=== PATIENT | male | born 1980 | race Caucasian/White ===

== ENCOUNTER 2018-05-19 16:06 | Emergency (ER) | payer BC ==
[2018-05-19] MEDS ORDERED: HYDROMORPHONE HCL 2 MG/ML VIAL IVP ONE ×2 (16:18→16:50)
[2018-05-19] MEDS ORDERED: KETOROLAC 30 MG/ML VIAL IVP ONE (16:21)
--- NOTE | 2018-05-19 16:23 | Emergency Department Record ---
History of Present Illness - General Chief Complaint: Abdominal Pain Stated Complaint: ABDOMINAL PAIN/VOMITING Time Seen by Provider: 05/19/18 16:10 Source: Patient, Family Mode of Arrival: EMS - History of Present Illness Initial Comments: 38 yo male presents with abdominal pain since 1pm. He reports he had some diarrhea earlier. No blood in the diarrhea. The pain he states is mostly below the umbilicus. He had associated vomiting. No blood in the diarrhea. He denies any history of abdominal surgery. Initially he is a limited historian due to pain. He is unable to fully verbalize answers due to the pain. No trauma. He denies fevers. MD Complaint: Abdominal pain Onset/Timin -: Hour(s) Location: Suprapubic Radiation: None Migration to: Suprapubic Severity: Severe Severity scale (1-10): 10 Quality: Sharp Consistency: Constant Improves With: Nothing Worsens With: Nothing Associated Symptoms: Nausea, Vomiting - Related Data Home Medications Medication Instructions Recorded Confirmed Last Taken Bupropion HCl [Bupropion HCl Sr] 150 mg PO DAILY 05/19/18 05/19/18 Unknown Previous Rx's Medication Instructions Recorded Tramadol HCl 50 mg PO Q6H #30 tab 08/28/15 Allergies Allergy/AdvReac Type Severity Reaction Status Date / Time No Known Drug Allergies Allergy Unverified 09/24/17 10:49 Travel Screening - Travel/Exposure Within Last 30 Days Have you traveled within the last 30 days?: No Review of Systems Constitutional: Denies: Chills, Fever, Weakness Eyes: Denies: Eye discharge ENT: Denies: Congestion, Throat pain Respiratory: Denies: Cough Cardiovascular: Denies: Chest pain, Palpitations, Syncope Endocrine: Denies: Fatigue Gastrointestinal: Reports: Abdominal pain, Diarrhea, Nausea, Vomiting. Denies: Constipation, Hematemesis, Hematochezia, Melena Genitourinary: Denies: Dysuria, Frequency, Hematuria Musculoskeletal: Denies: Arthralgia, Back pain, Myalgia, Neck pain Skin: Denies: Bruising, Change in color, Rash Neurological: Denies: Headache, Numbness, Weakness Psychiatric: Denies: Anxiety Hematological/Lymphatic: Denies: Easy bleeding, Easy bruising Past Medical History - SOCIAL HISTORY Smoking Status: Never smoker - RESPIRATORY Hx Respiratory Disorders: No - CARDIOVASCULAR Hx Cardio Disorders: No - NEURO Hx Neuro Disorders: No - GI Hx GI Disorders: No - Hx Genitourinary Disorders: No - ENDOCRINE Hx Diabetes: No Hx Thyroid Disease: No - MUSCULOSKELETAL Hx Musculoskeletal Disorders: Yes Hx Back Injury: Yes - PSYCH Hx Psych Problems: No - HEMATOLOGY/ONCOLOGY Hx Hematology/Oncology Disorders: No Family Medical History Any Significant Family History?: Yes Hx Diabetes: Grandparents Hx Heart Disease: Grandparents Physical Exam - General General Appearance: Alert, Oriented x3, Moderate distress, Anxious, Other ( Moaning rolling on the gurney, difficult to speak due to pain) Limitations: No limitations - Head Head exam: Atraumatic, Normal inspection - Eye Eye exam: Normal appearance. negative: Conjunctival injection - ENT ENT exam: Normal exam Ear exam: Normal external inspection Nasal Exam: Normal inspection Mouth exam: Normal external inspection - Neck Neck exam: Normal inspection - Respiratory Respiratory exam: Normal lung sounds bilaterally. negative: Respiratory distress - Cardiovascular Cardiovascular Exam: Regular rate, Normal rhythm, Normal heart sounds - GI/Abdominal GI/Abdominal exam: Soft, Guarding, Tenderness (tender across the lower abdomen) . negative: Distended, Rigid - Rectal Rectal exam: Deferred - exam: Deferred - Extremities Extremities exam: Normal inspection, Full ROM, Normal capillary refill. negative: Tenderness - Back Back exam: Denies: CVA tenderness (R), CVA tenderness (L) - Neurological Neurological exam: Alert, Oriented X3 - Psychiatric Psychiatric exam: Agitated, Anxious - Skin Skin exam: Dry, Intact, Normal color, Warm Course Vital Signs 05/19/18 16:10 Pulse Rate 89 Respiratory 24 Rate Blood Pressure 108/60 Pulse Ox 100 - Reevaluation(s) Reevaluation #1: CBC was reviewed. WBC is 15.3 HCO3 is 20 AG is 22 05/19/18 16:50 05/19/18 17:20 The pain level has greatly decreased from a 10/10 to a 4 and is "manageable" The nausea is gone UA was provided. 05/19/18 17:39 UA is negative 05/19/18 19:12 The patient is nausea free and pain free at this point. The CT scan is pending. No vomiting or diarrhea. 05/19/18 19:[address] of the abdomen was negative for acute abnormality. 05/19/18 19:58 The case was signed out to Dr Joseph for further evaluation. The patient is symptom free now. Given his sever pain at presentation recommend PO challenge. If asymptomatic then DC to recheck in the ED tomorrow or with his PCP to also consider US to evaluate the gall bladder although somewhat atypical history for that. Recommended return to ED to recheck the WBC count and assess if any additional abdominal pain. Medical Decision Making - Lab Data Result diagrams: 05/19/18 16:10 05/19/18 16:10 Disposition Disposition: Discharge Clinical Impression: Abdominal pain Qualifiers: Abdominal location: unspecified location Qualified Code(s): R10.9 - Unspecified abdominal pain Disposition: Home, Self-Care Condition: (1) Good Instructions: Abdominal Pain (ED) Additional Instructions: Return of be seen tomorrow to recheck your abdomen and recheck your blood count Return sooner if the pain returns Avoid fatty foods or heavy meals for the next few days Forms: Patient Portal Access Quality - Blood Pressure Screening Does Patient Have Any of the Following: No Blood Pressure Classification: Normal BP Reading Systolic Measurement: 108 Diastolic Measurement: 60 Screening for High Blood Pressure: < Normal BP, F/U Not Required > [G8783]
[2018-05-19 16:25] LABS: BASO % 0.2 % (0-6); EOS % 0.7 % (0-6); GRAN % 79.3 % (47-80); HEMATOCRIT 45.5 % (42.0-52.0); HEMOGLOBIN 15.6 gm/dl (14.0-18.0); LYMPH % 15.1 % (16-45); MEAN CORPUSCULAR HEMOGLOBIN 29.5 pg (27-33); MEAN CORPUSCULAR HGB CONC 34.3 g/dl (32-36); MEAN PLATELET VOLUME 10.9 fl (7.4-10.4); MONO % 4.7 % (0-9); PLATELET COUNT 335 K/uL (130-400); RED BLOOD COUNT 5.29 M/uL (4.40-5.70); RED CELL DISTRIBUTION WIDTH 12.5 % (11.5-14.5); WHITE BLOOD COUNT W/O DIFF 15.3 K/uL (4.2-12.2)
[2018-05-19 16:37] LABS: BLOOD UREA NITROGEN 15 mg/dL (6-20); CREATININE 1.1 mg/dL (0.7-1.2); EST GLOMERULAR FILTRATION RATE > 60 mL/min
[2018-05-19 16:38] LABS: TOTAL PROTEIN 7.6 g/dL (6.6-8.7)
[2018-05-19 16:40] LABS: GLUCOSE,RANDOM 161 mg/dL (74-109)
[2018-05-19 16:42] LABS: ALT/SGPT 15 U/L (<41)
[2018-05-19 16:43] LABS: ALB/GLOB RATIO 1.4 (1.1-1.8); ALBUMIN 4.4 g/dL (4.0-5.0); ALKALINE PHOSPHATASE 109 U/L (40-129); AST/SGOT 28 U/L (10.0-50.0); LIPASE 89 U/L (13-60)
[2018-05-19 17:06] LABS: PARTIAL THROMBOPLASTIN TIME 24.1 SECONDS (24.5-39.1); PROTHROMBIN TIME (PATIENT) 10.1 SECONDS (9.5-12.1)
[2018-05-19 17:13] LABS: URINE APPEARANCE CLEAR; URINE BILIRUBIN NEGATIVE (NEGATIVE); URINE BLOOD NEGATIVE (NEGATIVE); URINE COLOR YELLOW; URINE GLUCOSE (UA) NEGATIVE (NEGATIVE); URINE LEUKOCYTE ESTERASE NEGATIVE (NEGATIVE); URINE NITRITE NEGATIVE (NEGATIVE); URINE PROTEIN NEGATIVE (NEGATIVE); URINE UROBILINOGEN 0.2 E.U./dL (0.20 - 1.00)
[2018-05-19 17:16] LABS: URINE KETONE 80 mg/dL (NEGATIVE)
== END 2018-05-19 21:05 | disposition home or self-care (01) ==
LOC: ER 16:06
DX: R10.33 Periumbilical pain (principal); R11.2 Nausea with vomiting, unspecified; R19.7 Diarrhea, unspecified
CPT/HCPCS: 99284 ×2; 96374; 96375; 83605; 83690; 85025; 85730; 85610; 80053; 81003; 74177; Q9967; J1885; J1170

== ENCOUNTER 2018-05-20 16:28 | Emergency (ER) | payer BC ==
--- NOTE | 2018-05-20 16:49 | Emergency Department Record ---
History of Present Illness - General Chief Complaint: Recheck - Other Stated Complaint: GALL BLADDER/ US Time Seen by Provider: 05/20/18 16:45 Source: Patient Mode of arrival: Ambulatory Limitations: No limitations - History of Present Illness Initial Comments: The patient is here for a recheck of his abdominal pain that he had yesterday. The pain was quite severe yesterday and the patient had a neg workup including an abdominal CT. Today he states he has had some mild lower abdominal cramping but no severe pain, fever, nausea, vomiting, or diarrhea. The patient has been eating and drinking normally with no problems. MD Complaint: Wound re-check Onset/Timin -: Days(s) Initial Visit For: Other Returns Today for: Other Symptoms Since Prior Visit: Improved Associated Symptoms: Abdominal pain - Related Data Previous Rx's Medication Instructions Recorded Tramadol HCl 50 mg PO Q6H #30 tab 08/28/15 Allergies Allergy/AdvReac Type Severity Reaction Status Date / Time No Known Drug Allergies Allergy Verified 05/20/18 16:32 Travel Screening - Travel/Exposure Within Last 30 Days Have you traveled within the last 30 days?: No - Travel/Exposure Within Last Year Have you traveled outside the [place] in the last year?: No - Additonal Travel Details Have you been exposed to anyone with a communicable illness?: No - Travel Symptoms Symptom Screening: None Review of Systems Constitutional: Denies: Chills, Fever Eyes: Denies: Eye discharge ENT: Denies: Congestion Respiratory: Denies: Cough, Dyspnea Past Medical History - SOCIAL HISTORY Smoking Status: Never smoker Alcohol Use: None Drug Use: None - RESPIRATORY Hx Respiratory Disorders: No - CARDIOVASCULAR Hx Cardio Disorders: No - NEURO Hx Neuro Disorders: No - GI Hx GI Disorders: No - Hx Genitourinary Disorders: No - ENDOCRINE Hx Diabetes: No Hx Thyroid Disease: No - MUSCULOSKELETAL Hx Musculoskeletal Disorders: Yes Hx Back Injury: Yes - PSYCH Hx Psych Problems: No - HEMATOLOGY/ONCOLOGY Hx Hematology/Oncology Disorders: No Family Medical History Any Significant Family History?: Yes Hx Diabetes: Grandparents Hx Heart Disease: Grandparents Physical Exam - General General Appearance: Alert, Oriented x3, Cooperative, No acute distress - Head Head exam: Atraumatic, Normocephalic, Normal inspection - Eye Eye exam: Normal appearance, PERRL, EOMI - Neck Neck exam: Normal inspection, Full ROM. negative: Tenderness - Respiratory Respiratory exam: Normal lung sounds bilaterally. negative: Respiratory distress - Cardiovascular Cardiovascular Exam: Regular rate, Normal rhythm, Normal heart sounds - GI/Abdominal GI/Abdominal exam: Soft, Normal bowel sounds. negative: Distended, Guarding, Rebound, Rigid, Tenderness - Extremities Extremities exam: Normal inspection, Full ROM, Normal capillary refill. negative: Tenderness - Neurological Neurological exam: Alert, Normal gait. negative: Abnormal gait, Motor sensory deficit - Psychiatric Psychiatric exam: Normal mood Course Vital Signs 05/20/18 16:35 Temperature 98.7 F Pulse Rate 88 Respiratory 20 Rate Blood Pressure 114/71 Pulse Ox 96 - Reevaluation(s) Reevaluation #1: The patient is doing very well at this time. He denies any pain or discomfort. I did discuss the neg workup with him and will refer him to GI due to the severe pain he was experiencing. 05/20/18 19:07 Medical Decision Making - Data Complexity MDM Data: Labs Ordered and/or Reviewed, X-Ray Ordered and/or Reviewed - Lab Data Result diagrams: 05/20/18 17:12 05/20/18 17:12 - Radiology Data Radiology results: Report reviewed (Abd US: Neg per Rad.) Disposition Disposition: Discharge Clinical Impression: Abdominal pain Qualifiers: Abdominal location: unspecified location Qualified Code(s): R10.9 - Unspecified abdominal pain Disposition: Home, Self-Care Condition: (2) Stable Instructions: Acute Abdominal Pain (ED) Additional Instructions: Please continue your regular medicines and please see Dr. Hargrove [facility] next [facility]. Return to the ER for any worsening symptoms. Referrals: [facility] [Provider Group] Forms: Patient Portal Access Time of Disposition: 19:09 Quality - Quality Measures Quality Measures: N/A - Blood Pressure Screening View Details: Yes Does Patient Have Any of the Following: No Blood Pressure Classification: Normal BP Reading Systolic Measurement: 114 Diastolic Measurement: 71 Screening for High Blood Pressure: < Normal BP, F/U Not Required > [G8783]
[2018-05-20 17:18] LABS: BASO % 0.3 % (0-6); GRAN % 66.8 % (47-80); HEMATOCRIT 42.4 % (42.0-52.0); HEMOGLOBIN 13.8 gm/dl (14.0-18.0); LYMPH % 24.7 % (16-45); MEAN CELL VOLUME 87.4 fl (81-97); MEAN CORPUSCULAR HGB CONC 32.5 g/dl (32-36); MEAN PLATELET VOLUME 9.8 fl (7.4-10.4); MONO % 7.2 % (0-9); PLATELET COUNT 244 K/uL (130-400); RED BLOOD COUNT 4.85 M/uL (4.40-5.70); RED CELL DISTRIBUTION WIDTH 12.6 % (11.5-14.5)
[2018-05-20 17:19] LABS: MEAN CORPUSCULAR HEMOGLOBIN 28.4 pg (27-33)
[2018-05-20 17:28] LABS: BLOOD UREA NITROGEN 10 mg/dL (6-20); CREATININE 1.1 mg/dL (0.7-1.2); EST GLOMERULAR FILTRATION RATE > 60 mL/min; TOTAL PROTEIN 6.3 g/dL (6.6-8.7)
[2018-05-20 17:30] LABS: GLUCOSE,RANDOM 102 mg/dL (74-109)
[2018-05-20 17:33] LABS: ALBUMIN 3.7 g/dL (4.0-5.0); ALKALINE PHOSPHATASE 87 U/L (40-129); ALT/SGPT 12 U/L (<41); AST/SGOT 16 U/L (10.0-50.0); LIPASE 24 U/L (13-60)
[2018-05-20 17:44] LABS: BILIRUBIN,DIRECT < 0.2 mg/dL (0-0.3)
== END 2018-05-20 19:39 | disposition home or self-care (01) ==
LOC: ER 16:28
DX: R10.30 Lower abdominal pain, unspecified (principal)
CPT/HCPCS: 76700; 80048; 80076; 83690; 85025; 99283

== ENCOUNTER 2019-01-12 01:24 | Emergency (ER) | payer BC, OTHER ==
--- NOTE | 2019-01-12 01:39 | Emergency Department Record ---
History of Present Illness - General Chief complaint: Male Urogenital Problem Stated complaint: TESTICLE PAIN Time Seen by Provider: 01/12/19 01:26 Source: Patient Mode of Arrival: Ambulatory Limitations: No limitations - History of Present Illness Initial comments: The patient has had mild R testicle and inguinal pain for about 5-7 days and then the pain became much worse about 2 hours ago. He states he feels the pain may be located behind the testicle over the epididymis. There is mild radiation of the pain to the R lower abdomen but he denies any vomiting, dysuria, fever, or back pain. The patient has no hx of similar issues and no abdominal christina geries. MD Complaint: Testicle pain Onset/Timin -: Hour(s) Location: Right inguinal region, Right testicle Radiation: None Severity: Moderate Severity scale (1-10): 6 Quality: Aching Consistency: Intermittent, Getting worse Improves with: Other Worsens with: Other Reports: Denies other symptoms - Related Data Sexually active: Yes Previous Rx's Medication Instructions Recorded Ciprofloxacin HCl [Cipro] 500 mg PO Q12HR #14 tablet 01/12/19 Allergies Allergy/AdvReac Type Severity Reaction Status Date / Time No Known Drug Allergies Allergy Verified 01/12/19 01:31 Travel Screening - Travel/Exposure Within Last 30 Days Have you traveled within the last 30 days?: No - Travel/Exposure Within Last Year Have you traveled outside the [place] in the last year?: No - Additonal Travel Details Have you been exposed to anyone with a communicable illness?: No - Travel Symptoms Symptom Screening: None Review of Systems Constitutional: Denies: Chills, Fever Eyes: Denies: Eye discharge ENT: Denies: Congestion Respiratory: Denies: Cough, Dyspnea Past Medical History - SOCIAL HISTORY Smoking Status: Never smoker - RESPIRATORY Hx Respiratory Disorders: No - CARDIOVASCULAR Hx Cardio Disorders: No - NEURO Hx Neuro Disorders: No - GI Hx GI Disorders: No - Hx Genitourinary Disorders: No - ENDOCRINE Hx Diabetes: No Hx Thyroid Disease: No - MUSCULOSKELETAL Hx Musculoskeletal Disorders: Yes Hx Back Injury: Yes - PSYCH Hx Psych Problems: No - HEMATOLOGY/ONCOLOGY Hx Hematology/Oncology Disorders: No Family Medical History Hx Diabetes: Grandparents Hx Heart Disease: Grandparents Physical Exam - General General Appearance: Alert, Oriented x3, Cooperative, No acute distress - Head Head exam: Atraumatic, Normocephalic, Normal inspection - Eye Eye exam: Normal appearance, PERRL - Neck Neck exam: Normal inspection, Full ROM. negative: Tenderness - Respiratory Respiratory exam: Normal lung sounds bilaterally. negative: Respiratory distress - Cardiovascular Cardiovascular Exam: Regular rate, Normal rhythm, Normal heart sounds - GI/Abdominal GI/Abdominal exam: Soft. negative: Rebound, Rigid, Tenderness - exam: Circumcision, Normal inspection, Testicular tenderness (The R testicle is moderately tender along with the R epididymus. There is no R cremasteric reflex.), Vertical testicular lie (R only.) - Back Back exam: Reports: Normal inspection - Neurological Neurological exam: Alert. negative: Motor sensory deficit Course Vital Signs 01/12/19 01:28 Temperature 98.3 F Pulse Rate [ 91 H Pulse Ox Probe] Respiratory 20 Rate Blood Pressure 116/78 [Left Arm] Pulse Ox 100 - Reevaluation(s) Reevaluation #1: Due to the issue clearly being testicle pain and the need to R/O torsion I did recommend an US to the patient. Since we are unable to perform that test I did recommend transfer to [facility] for the test and the patient did agree. I then did discuss the case with Dr. Baze in the [facility] ED and he does accept the patient in an ER to ER transfer. 01/12/19 02:00 Medical Decision Making - Data Complexity MDM Data: Labs Ordered and/or Reviewed - Lab Data Result diagrams: 01/12/19 01:47 01/12/19 01:47 Disposition Disposition: Discharge Clinical Impression: Pain in right testicle Disposition: Acute Care Hospital Transfer Transfer To: [facility] Reason For Transfer: Ultrasound Accepting Physician: Sasha Time Discussed w/Accepting Physician: 02:02 Condition: (2) Stable Instructions: Testicle Pain (ED) Additional Instructions: Please proceed directly to the ER at [facility] for the ultrasound of your testicle. Please take the Cipro if given the OK at [facility] if the US is neg. Prescriptions: Ciprofloxacin HCl [Cipro] 500 mg PO Q12HR #14 tablet Forms: Patient Portal Access Time of Disposition: 02:02 Quality - Quality Measures Quality Measures: N/A - Blood Pressure Screening View Details: Yes Does Patient Have Any of the Following: No Blood Pressure Classification: Normal BP Reading Systolic Measurement: 116 Diastolic Measurement: 78 Screening for High Blood Pressure: < Normal BP, F/U Not Required > [G3414]
[2019-01-12] MEDS ORDERED: KETOROLAC 30 MG/ML VIAL IM ONE (01:45)
[2019-01-12 01:57] LABS: ABSOLUTE NEUTROPHIL COUNT 3.62; BASO % 0.8 % (0-6); EOS % 6.1 % (0-6); HEMATOCRIT 44.1 % (42.0-52.0); HEMOGLOBIN 14.7 gm/dl (14.0-18.0); LYMPH % 40.3 % (16-45); MEAN CELL VOLUME 87.7 fl (81-97); MEAN CORPUSCULAR HEMOGLOBIN 29.2 pg (27-33); MEAN CORPUSCULAR HGB CONC 33.3 g/dl (32-36); MONO % 6.8 % (0-9); PLATELET COUNT 276 K/uL (130-400); RED BLOOD COUNT 5.03 M/uL (4.40-5.70); RED CELL DISTRIBUTION WIDTH 12.5 % (11.5-14.5); WHITE BLOOD COUNT W/O DIFF 7.9 K/uL (4.2-12.2)
[2019-01-12 01:58] LABS: URINE APPEARANCE CLEAR; URINE BILIRUBIN NEGATIVE (NEGATIVE); URINE BLOOD NEGATIVE (NEGATIVE); URINE COLOR YELLOW; URINE GLUCOSE (UA) NEGATIVE (NEGATIVE); URINE KETONE NEGATIVE (NEGATIVE); URINE LEUKOCYTE ESTERASE TRACE (NEGATIVE); URINE NITRITE NEGATIVE (NEGATIVE); URINE PROTEIN NEGATIVE (NEGATIVE); URINE UROBILINOGEN 0.2 E.U./dL (0.20 - 1.00)
[2019-01-12 02:02] LABS: URINE BACTERIA FEW; URINE EPITHELIAL CELLS 0 - 2 (FEW); URINE RBC 0 - 2 (NONE SEEN)
[2019-01-12 02:18] LABS: BLOOD UREA NITROGEN 15 mg/dL (6-20); CREATININE 0.8 mg/dL (0.7-1.2); EST GLOMERULAR FILTRATION RATE > 60 mL/min
[2019-01-12 02:21] LABS: GLUCOSE,RANDOM 126 mg/dL (74-109)
== END 2019-01-12 02:08 | disposition short-term general hospital (02) ==
LOC: ER 01:24
DX: N50.811 Right testicular pain (principal)
CPT/HCPCS: 80048; 81001; 85025; 96372; 99283; 99284; J1885